=== PATIENT | female | born 1990 | race Caucasian/White ===

== ENCOUNTER 2016-12-09 23:36 | Emergency (ER) | payer MEDICAID ==
[2016-12-09 23:49] VITALS: BP 146/79
--- NOTE | 2016-12-10 00:37 | EDM.PDOC ---
ED HPI ENT - General Chief Complaint: ENT Problem Stated Complaint: TOOTHACHE Time Seen by Provider: 12/10/16 00:27 Source: Reports: Patient, RN notes reviewed History Limitations: Reports: No limitations - History of Present Illness INITIAL COMMENTS - FREE TEXT/NARRATIVE: 26-year-old female presents emergency department a complaint of dental pain, she states that the pain for last 24 hours unable to sleep secondary to her pain she has been using ibuprofen without much relief denies any fevers - Related Data Allergies/ADRs: Allergies Allergy/AdvReac Type Severity Reaction Status Date / Time morphine Allergy Itching Verified 12/09/16 23:50 Home Meds: Home Meds Citalopram Hydrobromide [Citalopram HBr] 40 mg PO DAILY 09/26/15 [History] Methylphenidate [Ritalin SR] 20 mg PO DAILY 12/09/16 [History] hydrOXYzine HCl [Take Home: hydrOXYzine HCl 25 MG, 4 Tab Pack] 1 tab PO DAILY PRN 12/09/16 [History] 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: 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 Psychiatric History: Reports: Anxiety, Depression - Infectious Disease History Infectious Disease History: Reports: Human papilloma virus (HPV) - Past Surgical History Female Surgical History: Reports: section, Tubal ligation Social & Family History - Tobacco Use Smoking Status *Q: Never Smoker Years of Tobacco use: 10 Packs/Tins Daily: 0.5 Second Hand Smoke Exposure: Yes - Caffeine Use Caffeine Use: Reports: None - Alcohol Use Days Per Week of Alcohol Use: 0 - Recreational Drug Use Recreational Drug Use: No ED ROS ENT - Review of Systems Review Of Systems: See Below Constitutional: Denies: fever, chills HEENT: Reports: Dental pain Respiratory: Reports: No Symptoms Cardiovascular: Reports: No symptoms ED EXAM, ENT - Physical Exam Exam: See Below Exam Limited By: No limitations General Appearance: alert, WD/WN, no apparent distress Mouth/Throat: Normal inspection, Normal gums, Dental pain, Dental tenderness, Other (Tooth #15). No: Dental abcess Course - Vital Signs Last Recorded V/S: Last Vital Signs Temp 97.8 F 12/09/16 23:46 Pulse 96 12/09/16 23:46 Resp 16 12/09/16 23:46 BP 146/79 H 12/09/16 23:46 Pulse Ox 98 12/09/16 23:46 Departure - Departure Time of Disposition: 00:37 Disposition: Home, Self-Care 01 Condition: good Clinical Impression: Pain, dental Forms: ED Department Discharge Additional Instructions: Use ibuprofen for baseline pain control, use Tylenol #3 for breakthrough pain, please followup with dentistry as soon as possible - Assessment/Plan Plan: Assessment Acuity = acute Site and laterality = dental pain #15 Etiology = dental caries Manifestations = [none Location of injury = home Lab values = none Plan Prescription written for ibuprofen 800 mg tablets as well as 15 tablets of Tylenol No. 3 recommend followup with dentistry as soon as possible Patient was in agreement with the plan all questions were answered, they were instructed to return to the emergency department or call for worsening symptoms. This note was dictated using [employer] voice recognition software please call with any questions.
== END 2016-12-10 00:42 | disposition home or self-care (01) ==
LOC: JP.ED 23:36
DX: K08.89 Other specified disorders of teeth and supporting structures (principal); F41.9 Anxiety disorder, unspecified; F32.9 Major depressive disorder, single episode, unspecified; Z98.51 Tubal ligation status; Z88.5 Allergy status to narcotic agent; Z79.899 Other long term (current) drug therapy
CPT/HCPCS: 99283

== ENCOUNTER 2017-02-17 15:46 | Emergency (ER) | payer MEDICAID ==
[2017-02-17] MEDS ORDERED: Ibuprofen 600 MG Tab PO ONE (15:55)
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
[2017-02-17 16:07] VITALS: BP 146/91
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
== END 2017-02-17 17:09 | disposition home or self-care (01) ==
LOC: JP.ED 15:46
DX: S13.4XXA Sprain of ligaments of cervical spine, initial encounter (principal); Z88.5 Allergy status to narcotic agent; Z79.899 Other long term (current) drug therapy; F31.9 Bipolar disorder, unspecified; F41.9 Anxiety disorder, unspecified; Z98.51 Tubal ligation status; V43.51XA Car driver injured in collision with sport utility vehicle in traffic accident, initial encounter
CPT/HCPCS: 72125; 73080; 81001; 99285; A9270; 99283

== ENCOUNTER 2017-02-24 21:12 | Emergency (ER) | payer MEDICAID ==
[2017-02-24 23:11] VITALS: BP 139/81
[2017-02-24] MEDS ORDERED: Ketorolac 60 MG/2 ML SDV IM ONE (23:20)
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
== END 2017-02-25 00:10 | disposition home or self-care (01) ==
LOC: JP.ED 21:12
DX: S39.012D Strain of muscle, fascia and tendon of lower back, subsequent encounter (principal); F17.210 Nicotine dependence, cigarettes, uncomplicated; G43.909 Migraine, unspecified, not intractable, without status migrainosus; F41.9 Anxiety disorder, unspecified; F32.9 Major depressive disorder, single episode, unspecified; Z88.5 Allergy status to narcotic agent; Z79.899 Other long term (current) drug therapy; Z90.49 Acquired absence of other specified parts of digestive tract; Z98.51 Tubal ligation status; V89.2XXD Person injured in unspecified motor-vehicle accident, traffic, subsequent encounter
CPT/HCPCS: 96372; 99283; J1885

== ENCOUNTER 2017-03-30 02:38 | Emergency (ER) | payer MEDICAID ==
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
== END 2017-03-30 04:02 | disposition home or self-care (01) ==
LOC: JP.ED 02:38
DX: K02.9 Dental caries, unspecified (principal); F17.210 Nicotine dependence, cigarettes, uncomplicated; Z88.5 Allergy status to narcotic agent; Z79.899 Other long term (current) drug therapy
CPT/HCPCS: 99283

== ENCOUNTER 2017-06-26 18:48 | Emergency (ER) | payer MEDICAID ==
[2017-06-26 19:35] VITALS: BP 109/59
--- NOTE | 2017-06-26 20:01 | EDM.PDOC ---
ED HPI GENERAL MEDICAL PROBLEM - General Chief Complaint: ENT Problem Stated Complaint: L EAR & TOOTH PAIN Time Seen by Provider: 06/26/17 19:56 Source of Information: Reports: Patient, Old Records History Limitations: Reports: No Limitations - History of Present Illness INITIAL COMMENTS - FREE TEXT/NARRATIVE: 27 yo female with an oral infection and L ear pain. The oral infection has been present for a couple weeks, the ear is a more recent problem. No fever. Has no dentist. Onset: Gradual Duration: Day(s): Location: Reports: Head (L ear), Face Quality: Reports: Ache Severity: Mild Improves with: Reports: None Worsens with: Reports: Other (time) Context: Reports: Other (Hx of prior dental infections.) Associated Symptoms: Reports: No Other Symptoms. 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 Pain Score (Numeric/FACES): 8 - Related Data Allergies Allergy/AdvReac Type Severity Reaction Status Date / Time morphine Allergy Itching Verified 06/26/17 19:30 Home Meds: Home Meds Escitalopram [Lexapro] 10 mg PO DAILY 03/30/17 [History] Methylphenidate [Ritalin] 20 mg PO BID 03/30/17 [History] Meloxicam [Mobic] 7.5 mg PO DAILY 06/26/17 [History] Past Medical History HEENT History: Reports: None Cardiovascular History: Reports: None Respiratory History: Reports: None Gastrointestinal History: Reports: None Genitourinary History: Reports: None 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 Neurological History: Reports: Migraines Psychiatric History: Reports: Anxiety, Depression Endocrine/Metabolic History: Reports: None Hematologic History: Reports: None Immunologic History: Reports: None Oncologic (Cancer) History: Reports: None Dermatologic History: Reports: None - Infectious Disease History Infectious Disease History: Reports: Chicken Pox - Past Surgical History Head Surgeries/Procedures: Reports: None HEENT Surgical History: Reports: None Cardiovascular Surgical History: Reports: None Respiratory Surgical History: Reports: None GI Surgical History: Reports: Appendectomy Female Surgical History: Reports: Section, Tubal Ligation Endocrine Surgical History: Reports: None Neurological Surgical History: Reports: None Musculoskeletal Surgical History: Reports: None Oncologic Surgical History: Reports: None Dermatological Surgical History: Reports: None Social & Family History - Tobacco Use Smoking Status *Q: Current Every Day Smoker Years of Tobacco use: 15 Packs/Tins Daily: 0.7 Used Tobacco, but Quit: No Second Hand Smoke Exposure: Yes - Caffeine Use Caffeine Use: Reports: Coffee, Energy Drinks - Alcohol Use Days Per Week of Alcohol Use: 0 - Recreational Drug Use Recreational Drug Use: No ED ROS ENT - Review of Systems Review Of Systems: See Below Constitutional: Reports: No Symptoms HEENT: Reports: Dental Pain (Upper left), Ear Pain (Left) Respiratory: Reports: No Symptoms Skin: Reports: No Symptoms Neurological: Reports: No Symptoms ED EXAM, ENT - Physical Exam Exam: See Below Exam Limited By: No Limitations General Appearance: Alert, WD/WN, No Apparent Distress Ears: Normal External Exam, Normal Canal, Hearing Grossly Normal, Other ( minimal erythema of the L TM) Nose: Normal Inspection, Normal Mucousa, No Blood Mouth/Throat: Normal Gums, Normal Lips, Normal Oropharynx, Other (small pustule above the L upper canine. Tooth tender with percussion. ) Head: Atraumatic, Normocephalic Neck: Normal Inspection, Supple Respiratory/Chest: No Respiratory Distress, Lungs Clear, Normal Breath Sounds, No Accessory Muscle Use Course - Vital Signs Last Recorded V/S: Last Vital Signs Temp 37 C 06/26/17 19:34 Pulse 63 06/26/17 19:34 Resp 15 06/26/17 19:34 BP 109/59 L 06/26/17 19:34 Pulse Ox 96 06/26/17 19:34 Departure - Departure Time of Disposition: 20:01 Disposition: Home, Self-Care 01 Condition: Good Clinical Impression: Dental abscess Otitis media Qualifiers: Otitis media type: other nonsuppurative Chronicity: acute Laterality: left Recurrence: not specified as recurrent Qualified Code(s): H65.192 - Other acute nonsuppurative otitis media, left ear - Discharge Information Referrals: PCP,None [Primary Care Provider] - Forms: ED Department Discharge
== END 2017-06-26 20:01 | disposition home or self-care (01) ==
LOC: JP.ED 18:48
DX: H65.192 Other acute nonsuppurative otitis media, left ear (principal); K04.7 Periapical abscess without sinus; Z88.5 Allergy status to narcotic agent; F17.210 Nicotine dependence, cigarettes, uncomplicated
CPT/HCPCS: 99283

== ENCOUNTER 2017-08-02 15:36 | Emergency (ER) | payer MEDICAID ==
[2017-08-02 15:51] VITALS: BP 129/56
[2017-08-02] MEDS ORDERED: Ketorolac 60 MG/2 ML SDV IM ONE (16:26)
--- NOTE | 2017-08-02 16:35 | EDM.PDOC ---
ED HPI GENERAL MEDICAL PROBLEM - General Chief Complaint: Back Pain or Injury Stated Complaint: BACK PAIN Time Seen by Provider: 08/02/17 16:21 Source of Information: Reports: Patient, RN Notes Reviewed History Limitations: Reports: No Limitations - History of Present Illness INITIAL COMMENTS - FREE TEXT/NARRATIVE: 27-year-old female presents emergency department day complaint of back pain, she has a history of chronic back pain is asking for some pain control she states Toradol usually works well for her she denies any loss of bowel or bladder - Related Data Allergies Allergy/AdvReac Type Severity Reaction Status Date / Time morphine Allergy Itching Verified 06/26/17 19:30 Home Meds: Home Meds Escitalopram [Lexapro] 10 mg PO DAILY 03/30/17 [History] Citalopram [Citalopram HBr] 08/02/17 [History] Past Medical History 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 Neurological History: Reports: Migraines Psychiatric History: Reports: Anxiety, Depression - Infectious Disease History Infectious Disease History: Reports: Chicken Pox - Past Surgical History Head Surgeries/Procedures: Reports: None HEENT Surgical History: Reports: None Cardiovascular Surgical History: Reports: None Respiratory Surgical History: Reports: None GI Surgical History: Reports: Appendectomy Female Surgical History: Reports: Section, Tubal Ligation Endocrine Surgical History: Reports: None Neurological Surgical History: Reports: None Musculoskeletal Surgical History: Reports: None Oncologic Surgical History: Reports: None Dermatological Surgical History: Reports: None Social & Family History - Tobacco Use Smoking Status *Q: Current Every Day Smoker Years of Tobacco use: 4 Packs/Tins Daily: 0.1 Used Tobacco, but Quit: No Second Hand Smoke Exposure: Yes - Caffeine Use Caffeine Use: Reports: Coffee, Energy Drinks - Alcohol Use Days Per Week of Alcohol Use: 0 - Recreational Drug Use Recreational Drug Use: No ED ROS GENERAL - Review of Systems Review Of Systems: See Below Constitutional: Reports: No Symptoms Musculoskeletal: Reports: Back Pain ED EXAM, GENERAL - Physical Exam Exam: See Below Exam Limited By: No Limitations General Appearance: Alert, WD/WN, No Apparent Distress Respiratory/Chest: No Respiratory Distress Back Exam: Normal Inspection, Full Range of Motion, Paraspinal Tenderness. No: CVA Tenderness (R), CVA Tenderness (L), Muscle Spasm, Vertebral Tenderness Course - Vital Signs Last Recorded V/S: Last Vital Signs Temp 98.1 F 08/02/17 16:14 Pulse 98 08/02/17 16:14 Resp 16 08/02/17 16:14 BP 129/56 L 08/02/17 16:14 Pulse Ox 96 08/02/17 16:14 - Orders/Labs/Meds Meds: Medications Discontinued Medications Generic Name Dose Route Start Last Admin Trade Name Halley PRN Reason Stop Dose Admin Ketorolac Tromethamine 60 mg 08/02/17 16:26 Toradol IM 08/02/17 16:27 ONETIME ONE Departure - Departure Time of Disposition: 16:34 Disposition: Home, Self-Care 01 Condition: Good Clinical Impression: Back pain Qualifiers: Back pain location: low back pain Chronicity: chronic Back pain laterality: left Sciatica presence: without sciatica Qualified Code(s): M54.5 - Low back pain; G89.29 - Other chronic pain; G89.29 - Other chronic pain - Discharge Information Referrals: PCP,None [Primary Care Provider] - Additional Instructions: Use ibuprofen as needed for pain control, Please followup with your primary care provider in 3-5 days if not better, please call return to the emergency department with worsening of symptoms. - Assessment/Plan Plan: Assessment Acuity = chronic Site and laterality = back pain Etiology = unclear etiology Manifestations = none Location of injury = Home Lab values = none Plan Good relief with Toradol injection, recommend follow-up primary care in 3-5 days for reevaluation Patient was in agreement with the plan all questions were answered, they were instructed to return to the emergency department or call for worsening symptoms. This note was dictated using [email or web address] voice recognition software please call with any questions.
== END 2017-08-02 16:48 | disposition home or self-care (01) ==
LOC: JP.ED 15:36
DX: G89.29 Other chronic pain (principal); M54.5 Low back pain; F32.9 Major depressive disorder, single episode, unspecified; Z88.5 Allergy status to narcotic agent
CPT/HCPCS: 96372; 99283; J1885

== ENCOUNTER 2018-03-19 18:44 | Emergency (ER) | payer MEDICAID ==
[2018-03-19 18:58] VITALS: BP 145/78
--- NOTE | 2018-03-19 19:18 | EDM.PDOC ---
<Donna Ayoub N - Last Filed: 03/19/18 19:20> ED HPI GENERAL MEDICAL PROBLEM - General Chief Complaint: Back Pain or Injury Stated Complaint: BACK PAIN Time Seen by Provider: 03/19/18 19:10 - History of Present Illness INITIAL COMMENTS - FREE TEXT/NARRATIVE: Parris is an otherwise well 27-year-old female who presents to the ER with complaints of chronic low back pain which became unbearable today. Rates the pain at a 10/10 presently, and is exacerbated by sitting and moving. Denies any history of trauma or aggravating movements which would have precipitated this episode. Reports that her last MRI was last July, which showed a herniated disc at L5/SI joint. She reports radiculopathy, with numbness and tingling radiating to the top of her left foot. She states that an injection of Toradol typically alleviates her symptoms, and is requesting this today. She takes naproxen at home, and participates in weekly PT sessions, stretching exercises, and occasional chiropractor appointments for ongoing management. Denies any loss of control of bowel or bladder or any changes from baseline besides worsening pain. 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 Neurological History: Reports: Migraines Psychiatric History: Reports: Anxiety, Depression Endocrine/Metabolic History: Reports: None Hematologic History: Reports: None Immunologic History: Reports: None Oncologic (Cancer) History: Reports: None Dermatologic History: Reports: None - Infectious Disease History Infectious Disease History: Reports: Chicken Pox - Past Surgical History Head Surgeries/Procedures: Reports: None HEENT Surgical History: Reports: None Cardiovascular Surgical History: Reports: None Respiratory Surgical History: Reports: None GI Surgical History: Reports: Appendectomy Female Surgical History: Reports: Section, Tubal Ligation Endocrine Surgical History: Reports: None Neurological Surgical History: Reports: None Musculoskeletal Surgical History: Reports: None Oncologic Surgical History: Reports: None Dermatological Surgical History: Reports: None Social & Family History - Tobacco Use Smoking Status *Q: Never Smoker - Caffeine Use Caffeine Use: Reports: Coffee, Soda, Tea - Recreational Drug Use Recreational Drug Use: No ED ROS GENERAL - Review of Systems Constitutional: Reports: No Symptoms. Denies: Fever, Chills HEENT: Reports: No Symptoms Respiratory: Reports: No Symptoms Cardiovascular: Reports: No Symptoms Endocrine: Reports: No Symptoms GI/Abdominal: Reports: No Symptoms : Reports: No Symptoms. Denies: Incontinence Musculoskeletal: Reports: Back Pain Skin: Reports: No Symptoms Neurological: Reports: Numbness, Paresthesia (Of right leg) Psychiatric: Reports: No Symptoms Hematologic/Lymphatic: Reports: No Symptoms Immunologic: Reports: No Symptoms ED EXAM,LOWER BACK PAIN/INJURY - Physical Exam Exam: See Below Exam Limited By: No Limitations General Appearance: Alert, No Apparent Distress Back Exam: Normal Inspection, Other (Pain with palpation of lumbar spine) Neurological: Alert, Normal Mood/Affect, CN II-XII Intact, Normal Gait, Oriented x 3. No: Saddle Anesthesia Psychiatric: Normal Affect, Normal Mood Skin Exam: Warm, Dry, Intact Course - Vital Signs Last Recorded V/S: Last Vital Signs Temp 96.9 F 03/19/18 18:57 Pulse 85 03/19/18 18:57 Resp 16 03/19/18 18:57 BP 145/78 H 03/19/18 18:57 Pulse Ox 95 03/19/18 18:57 - Orders/Labs/Meds Meds: Medications Discontinued Medications Generic Name Dose Route Start Last Admin Trade Name Halley PRN Reason Stop Dose Admin Ketorolac Tromethamine 60 mg 03/19/18 19:19 03/19/18 19:24 Toradol IM 03/19/18 19:20 60 mg ONETIME ONE Administration Departure - Departure Disposition: Home, Self-Care 01 Clinical Impression: Acute exacerbation of chronic low back pain - Discharge Information Instructions: Back Pain, Adult Referrals: PCP,None [Primary Care Provider] - Forms: ED Department Discharge Care Plan Goals: Resident/PA IDX Provider #_ * IEctor MD was personally available for consultation in the ED. I have reviewed the chart and agree with the documentation as recorded by the Resident, including the assessment, treatment plan and disposition. * I, Ector Robertson MD personally saw and examined the patient. I have reviewed and agree with the Resident's findings. Continue any current medications and increase activity as tolerated. Continue with any exercises of the lower back when able. Consider rechecking in the next several days if not improving satisfactorily. <Ector Robertson - Last Filed: 03/19/18 21:45> ED ROS GENERAL - Review of Systems Review Of Systems: See Below Course - Re-Assessments/Exams Free Text/Narrative Re-Assessment/Exam: 03/19/18 19:32 Patient received 60 mg of IM Toradol and felt some improvement almost right away. She was comfortable being discharged. I encouraged her to continue with her exercises and strengthening of her lower back. She can recheck with her primary care if not improving satisfactorily. Departure - Departure Time of Disposition: 19:44
[2018-03-19] MEDS ORDERED: Ketorolac 60 MG/2 ML SDV IM ONE (19:19)
== END 2018-03-19 19:41 | disposition home or self-care (01) ==
LOC: JP.ED 18:44
DX: M54.5 Low back pain (principal); G89.29 Other chronic pain; F41.9 Anxiety disorder, unspecified; F32.9 Major depressive disorder, single episode, unspecified; Z88.5 Allergy status to narcotic agent
CPT/HCPCS: 96372; 99283; J1885

== ENCOUNTER 2018-05-25 08:17 | Emergency (ER) | payer MEDICAID ==
[2018-05-25 08:39] VITALS: BP 124/52
[2018-05-25] MEDS ORDERED: Ondansetron 4 MG Tab.DIS PO ONE (08:56)
[2018-05-25] MEDS ORDERED: Ketorolac 60 MG/2 ML SDV IM ONE (08:56)
--- NOTE | 2018-05-25 09:00 | EDM.PDOC ---
ED HPI GENERAL MEDICAL PROBLEM - General Chief Complaint: Gastrointestinal Problem Stated Complaint: VOMITING,DIARRHEA Time Seen by Provider: 05/25/18 08:45 Source of Information: Reports: Patient History Limitations: Reports: No Limitations - History of Present Illness INITIAL COMMENTS - FREE TEXT/NARRATIVE: 28-year-old female who started feeling sick to her stomach yesterday, developed some loose stools with nausea and vomiting. She is running a fever this morning , has a headache, her ears hurt so she thought she come in to be checked. She vomited once this morning. No exposure to illness she knows of, no recent travel , no recent antibiotic. She has some generalized aching, a headache, her knee hurts, some abdominal cramps but no specific area with localized pain. Onset: Gradual (Over the past 24 hours) Associated Symptoms: Reports: Fever/Chills, Headaches, Loss of Appetite, Malaise , Nausea/Vomiting. 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 Neurological History: Reports: Migraines Psychiatric History: Reports: Anxiety, Depression Endocrine/Metabolic History: Reports: None Hematologic History: Reports: None Immunologic History: Reports: None Oncologic (Cancer) History: Reports: None Dermatologic History: Reports: None - Infectious Disease History Infectious Disease History: Reports: Chicken Pox - Past Surgical History Head Surgeries/Procedures: Reports: None HEENT Surgical History: Reports: None Cardiovascular Surgical History: Reports: None Respiratory Surgical History: Reports: None GI Surgical History: Reports: Appendectomy Female Surgical History: Reports: Section, Tubal Ligation Endocrine Surgical History: Reports: None Neurological Surgical History: Reports: None Musculoskeletal Surgical History: Reports: None Oncologic Surgical History: Reports: None Dermatological Surgical History: Reports: None Social & Family History - Tobacco Use Smoking Status *Q: Never Smoker - Caffeine Use Caffeine Use: Reports: Coffee, Soda, Tea - Recreational Drug Use Recreational Drug Use: No ED ROS GENERAL - Review of Systems Review Of Systems: See Below Constitutional: Reports: Fever, Chills, Malaise, Decreased Appetite HEENT: Reports: Ear Pain. Denies: Throat Pain Respiratory: Denies: Shortness of Breath, Cough Cardiovascular: Denies: Chest Pain Endocrine: Reports: Fatigue GI/Abdominal: Reports: Abdominal Pain, Diarrhea, Decreased Appetite, Nausea, Vomiting : Reports: No Symptoms Musculoskeletal: Reports: Muscle Pain Skin: Reports: No Symptoms. Denies: Rash Neurological: Reports: Headache ED EXAM, GI/ABD - Physical Exam Exam: See Below Exam Limited By: No Limitations General Appearance: Alert, No Apparent Distress (Looks tired and uncomfortable but not distressed) Eyes: Bilateral: Normal Appearance (No jaundice) Head: Atraumatic Neck: No: Lymphadenopathy (R), Lymphadenopathy (L) Respiratory/Chest: No Respiratory Distress, Lungs Clear Cardiovascular: Regular Rate, Rhythm, Tachycardia (Mild tachycardia) GI/Abdominal Exam: Tender (She does react with discomfort with palpation but it is diffuse and mild, no rebound tenderness), Abnormal Bowel Sounds (Sounds are hypoactive) Extremities: Other (Some discomfort with passive movement of the right knee, no effusion) Neurological: Alert, Oriented Psychiatric: Flat Affect Skin Exam: Warm, Dry Course - Vital Signs Last Recorded V/S: Last Vital Signs Temp 102.4 F H 05/25/18 08:40 Pulse 111 H 05/25/18 08:40 Resp 16 05/25/18 08:40 BP 124/52 L 05/25/18 08:40 Pulse Ox 96 05/25/18 08:40 - Orders/Labs/Meds Labs: Laboratory Tests 05/25/18 05/25/18 Range/Units 09:39 09:39 WBC 10.6 (4.5-11.0) K/uL RBC 4.31 (3.30-5.50) M/uL Hgb 12.7 (12.0-15.0) g/dL Hct 37.4 (36.0-48.0) % MCV 87 (80-98) fL MCH 30 (27-31) pg MCHC 34 (32-36) % Plt Count 284 (150-400) K/uL Neut % (Auto) 88 H (36-66) % Lymph % (Auto) 6 L (24-44) % [place] % (Auto) 6 (2-6) % Eos % (Auto) 0 L (2-4) % Baso % (Auto) 0 (0-1) % Sodium 134 L (140-148) mmol/L Potassium 3.6 (3.6-5.2) mmol/L Chloride 99 L (100-108) mmol/L Carbon Dioxide 23 (21-32) mmol/L Anion Gap 15.6 H (5.0-14.0) mmol/L BUN 10 (7-18) mg/dL Creatinine 0.8 (0.6-1.0) mg/dL Est Cr Clr Drug Dosing 85.06 mL/min Estimated GFR (MDRD) > 60 (>60) Glucose 103 (74-106) mg/dL Calcium 8.7 (8.5-10.1) mg/dL Total Bilirubin 0.3 (0.2-1.0) mg/dL AST 19 D (15-37) U/L ALT 32 (12-78) U/L Alkaline Phosphatase 67 (46-116) U/L Total Protein 7.7 (6.4-8.2) g/dL Albumin 3.6 (3.4-5.0) g/dL Globulin 4.1 H (2.3-3.5) g/dL Albumin/Globulin Ratio 0.9 L (1.2-2.2) Meds: Medications Discontinued Medications Generic Name Dose Route Start Last Admin Trade Name Freq PRN Reason Stop Dose Admin Ketorolac Tromethamine 60 mg 05/25/18 08:56 05/25/18 09:02 Toradol IM 05/25/18 08:57 60 mg ONETIME ONE Administration Ondansetron HCl 4 mg 05/25/18 08:56 05/25/18 09:03 Zofran Odt PO 05/25/18 08:57 4 mg ONETIME ONE Administration - Re-Assessments/Exams Free Text/Narrative Re-Assessment/Exam: 05/25/18 08:59 This is very typical of a viral gastroenteritis, however symptoms can be treated. She is given 60 mg of IM Toradol and a sublingual Zofran. 05/25/18 10:07 Medications did provide some subjective improvement, white count was normal, extended chemistry profile was nonspecific. Wrote a note for the patient be off work for the next 1-2 days and encouraged her to concentrate on fluids and symptom control, and return if not improving in the next 24-48 hours. Departure - Departure Time of Disposition: 10:25 Disposition: Home, Self-Care 01 Condition: Fair Clinical Impression: Gastroenteritis - Discharge Information Instructions: Viral Gastroenteritis, Adult, [id number] Referrals: PCP,None [Primary Care Provider] - Forms: ED Department Discharge Care Plan Goals: Rest, fluids, a regular dose of ibuprofen or Tylenol will help with body aches and fever. Stay home from work for the next 1-2 days, and recheck in 24-48 hours if not improving satisfactorily.
== END 2018-05-25 10:25 | disposition home or self-care (01) ==
LOC: JP.ED 08:17
DX: K52.9 Noninfective gastroenteritis and colitis, unspecified (principal); Z79.899 Other long term (current) drug therapy; Z88.5 Allergy status to narcotic agent
CPT/HCPCS: 36415; 80053; 85025; 96372; 99284; A9270; J1885

== ENCOUNTER 2018-09-16 20:03 | Emergency (ER) | payer MEDICAID ==
[2018-09-16 20:37] VITALS: BP 135/82
--- NOTE | 2018-09-16 20:46 | EDM.PDOC ---
ED HPI GENERAL MEDICAL PROBLEM - General Chief Complaint: Upper Extremity Injury/Pain Stated Complaint: LIGHTHEADED,NECK AND ARM PAIN Time Seen by Provider: 09/16/18 20:30 Source of Information: Reports: Patient History Limitations: Reports: No Limitations - History of Present Illness INITIAL COMMENTS - FREE TEXT/NARRATIVE: 28-year-old female is felt lightheaded for the past 2 days, no fever or chills, no nausea or vomiting, her chronic neck and left arm discomfort is a little worse than usual. No shortness of breath or cough. No ear pain, abdominal pain, rashes or joint pains. Onset: Gradual (2 days) Associated Symptoms: Reports: Other (Mild neck and left arm discomfort with paresthesias). 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 Neurological History: Reports: Migraines Psychiatric History: Reports: Anxiety, Depression Endocrine/Metabolic History: Reports: None Hematologic History: Reports: None Immunologic History: Reports: None Oncologic (Cancer) History: Reports: None Dermatologic History: Reports: None - Infectious Disease History Infectious Disease History: Reports: Chicken Pox - Past Surgical History Head Surgeries/Procedures: Reports: None HEENT Surgical History: Reports: None Cardiovascular Surgical History: Reports: None Respiratory Surgical History: Reports: None GI Surgical History: Reports: Appendectomy Female Surgical History: Reports: Section, Tubal Ligation Endocrine Surgical History: Reports: None Neurological Surgical History: Reports: None Musculoskeletal Surgical History: Reports: None Oncologic Surgical History: Reports: None Dermatological Surgical History: Reports: None Social & Family History - Tobacco Use Smoking Status *Q: Unknown Ever Smoked - Caffeine Use Caffeine Use: Reports: Soda - Recreational Drug Use Recreational Drug Use: No Review of Systems - Review of Systems Review Of Systems: See Below Eyes: Reports: No Symptoms Ears: Reports: No Symptoms Mouth/Throat: Reports: No Symptoms Respiratory: Reports: No Symptoms Musculoskeletal: Reports: Neck Pain, Shoulder Pain (Left-sided) Skin: Reports: No Symptoms Neurological: Reports: Paresthesia (Paresthesias in the left arm) ED EXAM, GENERAL - Physical Exam Exam: See Below Exam Limited By: No Limitations General Appearance: Alert, No Apparent Distress Eye Exam: Bilateral Eye: Normal Inspection Ears: Normal TMs Head: Atraumatic Neck: Other (A small amount of paracervical muscle discomfort with palpation on the left side) Respiratory/Chest: No Respiratory Distress Cardiovascular: Regular Rate, Rhythm Extremities: Other (Full active range of motion of the left arm without limitations or pain.) Neurological: Alert, Oriented, Other (Romberg is negative, no pronator drift) Skin Exam: Warm, Dry Course - Vital Signs Last Recorded V/S: Last Vital Signs Temp 97.9 F 09/16/18 20:23 Pulse 78 09/16/18 20:23 Resp 12 09/16/18 20:23 BP 135/82 09/16/18 20:23 Pulse Ox 98 09/16/18 20:23 - Re-Assessments/Exams Free Text/Narrative Re-Assessment/Exam: 09/16/18 20:45 Patient will be put on naproxen through the weekend 500 mg twice daily and increase activity as tolerated. Recheck next week with her primary provider and initiate physical therapy if not improving satisfactorily. Departure - Departure Time of Disposition: 20:52 Disposition: Home, Self-Care 01 Condition: Good Clinical Impression: Dizziness, Paresthesia of left upper limb - Discharge Information Instructions: Dizziness, [id number] Referrals: PCP,None [Primary Care Provider] - Forms: ED Department Discharge Care Plan Goals: Continue activity as tolerated and take naproxen twice daily through the weekend as prescribed. Recheck early next week if not improving satisfactorily.
== END 2018-09-16 20:53 | disposition home or self-care (01) ==
LOC: JP.ED 20:03
DX: R42 Dizziness and giddiness (principal); R20.2 Paresthesia of skin; Z88.5 Allergy status to narcotic agent
CPT/HCPCS: 99284

== ENCOUNTER 2018-10-08 18:15 | Emergency (ER) | payer MEDICAID ==
[2018-10-08 18:35] VITALS: BP 117/61
[2018-10-08] MEDS ORDERED: Ketorolac 60 MG/2 ML SDV IM ONE (18:58)
[2018-10-08] MEDS ORDERED: Cyclobenzaprine 10 MG Tab PO ONE (18:59)
--- NOTE | 2018-10-08 19:00 | EDM.PDOC ---
ED HPI GENERAL MEDICAL PROBLEM - General Chief Complaint: Back Pain or Injury Stated Complaint: LOWER BACK PAIN Time Seen by Provider: 10/08/18 19:00 Source of Information: Reports: Patient History Limitations: Reports: No Limitations - History of Present Illness INITIAL COMMENTS - FREE TEXT/NARRATIVE: pt arrived with pain going over the buttock of the rt buttock area. She has some tingling in her left leg. She has not had a fall or injury. She has a history of neck pain. . 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 The low back symptoms are new and without injury. Onset: Other (last 2 days. 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 TEACHER History: Reports: Polycystic Ovaries Musculoskeletal History: Reports: Back Pain, Chronic Neurological History: Reports: Migraines Psychiatric History: Reports: Anxiety, Depression Endocrine/Metabolic History: Reports: None Hematologic History: Reports: None Immunologic History: Reports: None Oncologic (Cancer) History: Reports: None Dermatologic History: Reports: None - Infectious Disease History Infectious Disease History: Reports: Chicken Pox - Past Surgical History Head Surgeries/Procedures: Reports: None HEENT Surgical History: Reports: None Cardiovascular Surgical History: Reports: None Respiratory Surgical History: Reports: None GI Surgical History: Reports: Appendectomy Female Surgical History: Reports: Section, Tubal Ligation Endocrine Surgical History: Reports: None Neurological Surgical History: Reports: None Musculoskeletal Surgical History: Reports: None Oncologic Surgical History: Reports: None Dermatological Surgical History: Reports: None Social & Family History - Tobacco Use Smoking Status *Q: Current Every Day Smoker Years of Tobacco use: 10 Packs/Tins Daily: 0.5 - Caffeine Use Caffeine Use: Reports: Coffee, Soda, Tea - Recreational Drug Use Recreational Drug Use: No ED ROS GENERAL - Review of Systems Review Of Systems: See Below Constitutional: Reports: No Symptoms HEENT: Reports: No Symptoms Respiratory: Reports: No Symptoms Cardiovascular: Reports: No Symptoms Endocrine: Reports: No Symptoms GI/Abdominal: Reports: No Symptoms : Reports: No Symptoms Musculoskeletal: Reports: Back Pain, Muscle Pain, Other ( pt has tingling in her left leg. She has pain over the rt buttock. ) ED EXAM,LOWER BACK PAIN/INJURY - Physical Exam Exam: See Below Text/Narrative:: pt arrived with back pain which was not provoked by injury. Exam Limited By: No Limitations General Appearance: Alert, Mild Distress Ears: Normal TMs Nose: Normal Inspection Throat/Mouth: Normal Inspection Head: Sinus Tenderness Neck: Normal Inspection Respiratory/Chest: No Respiratory Distress Cardiovascular: Regular Rate, Rhythm GI/Abdominal: Soft, Non-Tender (Female) Exam: Deferred Rectal (Female) Exam: Deferred Back Exam: Other ( pt is having pain over the rt buttock which a questionably positive straight leg raising sign. She has a neg straight leg raising on the left. ) Extremities: Normal Inspection Neurological: Alert, Oriented x 3, Other (pt is having difficulty giving a good hiastory. ) Psychiatric: Normal Affect Course - Vital Signs Last Recorded V/S: Last Vital Signs Temp 36.2 C 10/08/18 18:37 Pulse 73 10/08/18 18:37 Resp 18 10/08/18 18:37 BP 117/61 10/08/18 18:37 Pulse Ox 95 10/08/18 18:37 - Orders/Labs/Meds Meds: Medications Discontinued Medications Generic Name Dose Route Start Last Admin Trade Name Halley PRN Reason Stop Dose Admin Hydrocodone Bitart/Acetaminophen 1 tab 10/08/18 19:41 [place] 325-5 Mg PO 10/08/18 19:42 ONETIME ONE Cyclobenzaprine HCl 10 mg 10/08/18 18:59 10/08/18 19:09 Flexeril PO 10/08/18 19:00 10 mg ONETIME ONE Administration Ketorolac Tromethamine 60 mg 10/08/18 18:58 10/08/18 19:09 Toradol IM 10/08/18 18:59 60 mg ONETIME ONE Administration - Re-Assessments/Exams Free Text/Narrative Re-Assessment/Exam: 10/08/18 19:44 pt was given flexeril and torodol and she did get relief. She is using advil for pain at home. Departure - Departure Time of Disposition: 19:45 Disposition: Home, Self-Care 01 Condition: Fair Clinical Impression: Low back pain - Discharge Information Referrals: Neetu Preciado MD [Primary Care Provider] - Forms: ED Department Discharge Care Plan Goals: moist warm heat to the low back, rest, torodol 10mg q6h for the next 5 days then resume the naprosyn 500mg bid, flexeril 10mg 1/2 tab qam and 1 tab hs. follow up appt with Dr Jonas. If ongouing pain pain may need a Mri of the lumbar area.
[2018-10-08] MEDS ORDERED: Acetaminophen/HYDROcodone 325-5 MG Tab PO ONE (19:41)
== END 2018-10-08 19:59 | disposition home or self-care (01) ==
LOC: JP.ED 18:15
DX: M54.5 Low back pain (principal); F17.210 Nicotine dependence, cigarettes, uncomplicated; Z88.8 Allergy status to other drugs, medicaments and biological substances
CPT/HCPCS: 96372; 99283; A9270; J1885

== ENCOUNTER 2019-09-20 22:08 | Emergency (ER) | payer MEDICAID ==
[2019-09-20 22:56] VITALS: BP 112/73; PULSE 85
--- NOTE | 2019-09-20 22:56 | EDM.PDOC ---
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: Polycystic Ovaries Musculoskeletal History: Reports: Back Pain, Chronic Neurological History: Reports: Migraines Psychiatric History: Reports: Anxiety, Depression - Infectious Disease History Infectious Disease History: Reports: Chicken Pox - Past Surgical History Head Surgeries/Procedures: Reports: None HEENT Surgical History: Reports: None Cardiovascular Surgical History: Reports: None Respiratory Surgical History: Reports: None GI Surgical History: Reports: Appendectomy Female Surgical History: Reports: Section, Tubal Ligation Endocrine Surgical History: Reports: None Neurological Surgical History: Reports: None Musculoskeletal Surgical History: Reports: None Oncologic Surgical History: Reports: None Dermatological Surgical History: Reports: None Social & Family History - Caffeine Use Caffeine Use: Reports: Coffee, Soda, Tea Review of Systems - Review of Systems Review Of Systems: See Below Musculoskeletal: Reports: Hand Pain Skin: Reports: No Symptoms Neurological: Reports: No Symptoms ED EXAM, GENERAL - Physical Exam Exam: See Below Free Text/Narrative:: Examination of the left hand I do not appreciate any erythema there is no edema there is some point tenderness over the thenar eminence of the thumb on the left hand full range of motion of all digits radial pulses +2 sensation is intact Exam Limited By: No Limitations General Appearance: Alert, WD/WN, No Apparent Distress Departure - Departure Time of Disposition: 22:55 Disposition: Home, Self-Care 01 Condition: Fair Clinical Impression: Repetitive motion injury - Discharge Information Referrals: PCP,None [Primary Care Provider] - Additional Instructions: Recommend alternative ways to perform your job, could use Tylenol and Motrin as needed for pain control consultation with physical therapy may be helpful, a brace may be helpful, please followup with your primary care provider in 3-5 days if not better, please call return to the emergency department with worsening of symptoms. - Assessment/Plan Plan: Assessment Acuity = acute Site and laterality = repetitive motion injury left hand Etiology = secondary to work-related injury Manifestations = pain Location of injury = Home Lab values = none Plan Counseled on repetitive motion injury and alternative ways to perform her job recommend she follow-up with primary care for possible consultation with physical therapy This note was dictated using [employer] voice recognition software please call with any questions on syntax or grammar.
== END 2019-09-20 23:07 | disposition home or self-care (01) ==
LOC: JP.ED 22:08
DX: S69.92XA Unspecified injury of left wrist, hand and finger(s), initial encounter (principal); Z88.5 Allergy status to narcotic agent; X58.XXXA Exposure to other specified factors, initial encounter
CPT/HCPCS: 99283

== ENCOUNTER 2020-03-29 20:41 | Emergency (ER) | payer MEDICAID ==
[2020-03-29 21:24] VITALS: BP 137/77; PULSE 75
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
== END 2020-03-29 22:11 | disposition home or self-care (01) ==
LOC: JP.ED 20:41
DX: R42 Dizziness and giddiness (principal); F17.210 Nicotine dependence, cigarettes, uncomplicated; Z88.5 Allergy status to narcotic agent
CPT/HCPCS: 99282; 99283

== ENCOUNTER 2021-03-09 19:58 | Emergency (ER) | payer MEDICAID ==
[2021-03-09 20:56] VITALS: BP 125/76; PULSE 94
--- NOTE | 2021-03-09 21:09 | EDM.PDOC ---
ED HPI GENERAL MEDICAL PROBLEM - General Chief Complaint: ENT Problem Stated Complaint: EAR ACHE Time Seen by Provider: 03/09/21 21:09 Source of Information: Reports: Patient, RN Notes Reviewed History Limitations: Reports: No Limitations - History of Present Illness INITIAL COMMENTS - FREE TEXT/NARRATIVE: Parris presents today with complaints of left ear pain radiating to her left neck. She states she has had the pain for about 2 days and lots of itching inside her ear before that. She tried OTC medications, benadryl and a supplement but they did not help. She reports she is not sure if she likes her ritalin or not and thinks she may stop taking it. She denies injury, trauma, fever, chills, nausea, vomiting, change in bowel/bladder, worsening of her chronic headaches or other concerns. - Related Data Allergies Allergy/AdvReac Type Severity Reaction Status Date / Time morphine Allergy Itching Verified 03/09/21 21:01 Home Meds: Home Meds Methylphenidate [Ritalin] 10 mg PO DAILY 03/09/21 [History] Topiramate 50 mg PO DAILY 03/09/21 [History] Past Medical History - Past Health History Medical/Surgical History: Denies Medical/Surgical History HEENT History: Reports: None, Otitis Media Cardiovascular History: Reports: None Respiratory History: Reports: None Genitourinary History: Reports: None RN ORTHOPAEDIC History: Reports: Polycystic Ovaries, Musculoskeletal History: Reports: Back Pain, Chronic, Neck Pain, Chronic Neurological History: Reports: Migraines Psychiatric History: Reports: ADHD, Anxiety, Depression, PTSD Endocrine/Metabolic History: Reports: None Hematologic History: Reports: None Immunologic History: Reports: None Oncologic (Cancer) History: Reports: None Dermatologic History: Reports: None - Infectious Disease History Infectious Disease History: Reports: Chicken Pox - Past Surgical History Head Surgeries/Procedures: Reports: None HEENT Surgical History: Reports: None Cardiovascular Surgical History: Reports: None Respiratory Surgical History: Reports: None GI Surgical History: Reports: Appendectomy Female Surgical History: Reports: Section, Tubal Ligation Endocrine Surgical History: Reports: None Neurological Surgical History: Reports: None Musculoskeletal Surgical History: Reports: None Oncologic Surgical History: Reports: None Dermatological Surgical History: Reports: None Social & Family History - Tobacco Use Tobacco Use Status *Q: Current Every Day Tobacco User Years of Tobacco use: 18 Packs/Tins Daily: 0.5 - Caffeine Use Caffeine Use: Reports: Energy Drinks Caffeine Use Comment: red bull - Recreational Drug Use Recreational Drug Use: Yes Drug Use in Last 12 Months: No Recreational Drug Type: Reports: Marijuana/Hashish ED ROS ENT - Review of Systems Review Of Systems: See Below Constitutional: Denies: Fever, Chills, Malaise, Weakness, Fatigue, Night Sweats HEENT: Reports: Ear Pain (left ear pain), Rhinitis, Throat Pain. Denies: Ear Discharge, Eye Discharge, Eye Pain, Hearing Loss, Nosebleed, Sinus Problem, Thro at Swelling, Vertigo, Vision Change Respiratory: Reports: No Symptoms Cardiovascular: Reports: No Symptoms Endocrine: Reports: No Symptoms GI/Abdominal: Reports: No Symptoms : Reports: No Symptoms Musculoskeletal: Reports: No Symptoms Skin: Reports: No Symptoms Neurological: Reports: No Symptoms Psychiatric: Reports: No Symptoms Hematologic/Lymphatic: Reports: No Symptoms Immunologic: Reports: No Symptoms ED EXAM, ENT - Physical Exam Exam: See Below Exam Limited By: No Limitations General Appearance: Alert, WD/WN, No Apparent Distress Eye Exam: Bilateral Eye: Normal Inspection, PERRL Ears: Auricular Tenderness (left), TM Bulging (left), TM Dullness (left), TM Erythema (left), Other (Right TM dull, retracted). No: Mastoid Tenderness Nose: Normal Inspection, Normal Mucousa, No Blood. No: Nasal Deformity, Nasal Discharge, Nasal Swelling, Nasal Tenderness Mouth/Throat: Normal Inspection, Normal Gums, Normal Lips, Normal Oropharynx, Normal Teeth, Throat Pain. No: Hoarse Voice, Pharyngeal Erythema, Throat Swelling, Tongue Swelling, Tonsillar Erythema, Tonsillar Exudates, Tonsillar Swelling, Trismus, Uvular Deviation, Uvular Edema Head: Atraumatic, Normocephalic Neck: Normal Inspection, Supple, Non-Tender, Full Range of Motion. No: Lymphade nopathy (R), Lymphadenopathy (L), Thyromegaly Respiratory/Chest: No Respiratory Distress, Lungs Clear, Normal Breath Sounds, No Accessory Muscle Use, Chest Non-Tender. No: Crackles, Rales, Rhonchi, Wheezing Cardiovascular: Normal Peripheral Pulses, Regular Rate, Rhythm, No Edema, No Gallop, No Murmur, No Rub Back: Normal Inspection, Full Range of Motion. No: CVA Tenderness (R), CVA Tenderness (L) Extremities: Normal Inspection, Normal Range of Motion, Non-Tender, No Pedal Edema, Normal Capillary Refill Neurological: Alert, Oriented, Normal Cognition, Normal Gait, No Motor/Sensory Deficits Psychiatric: Normal Affect, Normal Mood Skin: Warm, Dry, Intact, Normal Color, No Rash Lymphatic: No Adenopathy Course - Vital Signs Last Recorded V/S: Last Vital Signs Temp 36.4 C 03/09/21 21:07 Pulse 94 03/09/21 21:07 Resp 16 03/09/21 21:07 BP 125/76 03/09/21 21:07 Pulse Ox 97 03/09/21 21:07 Departure - Departure Time of Disposition: 21:26 Disposition: Home, Self-Care 01 Condition: Good Clinical Impression: Otitis media - Discharge Information *PRESCRIPTION DRUG MONITORING PROGRAM REVIEWED*: No *COPY OF PRESCRIPTION DRUG MONITORING REPORT IN PATIENT KIERRA: No Instructions: Otitis Media, Adult, [id number] Referrals: PCP,None [Primary Care Provider] - Forms: ED Department Discharge Additional Instructions: You have been evaluated and treated for otitis media left ear (ear infection). Take augmentin 1 tablet twice a day (12 hours apart) for 10 days for infection. Take zyrtec (cetirizine) 10mg pill, one pill every morning for seasonal allergies. Take benadryl 25mg pill, take two pills at bedtime to help with allergies. Drink plenty of water to stay hydrated. Continue your current medications and follow up with your provider as needed. Return for any worsening, issues or concerns. Sepsis Event Note (ED) - Evaluation Sepsis Screening Result: No Definite Risk - Focused Exam Vital Signs: Vital Signs Temp Pulse Resp BP Pulse Ox 03/09/21 21:07 36.4 C 94 16 125/76 97 03/09/21 20:54 36.4 C 94 16 125/76 97 - Assessment/Plan Assessment:: Otitis media right Plan: Patient evaluated and treated for otitis media left ear (ear infection). Take augmentin 1 tablet twice a day (12 hours apart) for 10 days for infection. Take zyrtec (cetirizine) 10mg pill, one pill every morning for seasonal allergies. Take benadryl 25mg pill, take two pills at bedtime to help with allergies. Drink plenty of water to stay hydrated. Continue your current medications and follow up with your provider as needed. Return for any worsening, issues or concerns.
== END 2021-03-09 21:47 | disposition home or self-care (01) ==
LOC: JP.ED 19:58
DX: H66.92 Otitis media, unspecified, left ear (principal); Z88.5 Allergy status to narcotic agent; Z72.0 Tobacco use
CPT/HCPCS: 99282

== ENCOUNTER 2021-03-20 01:34 | Emergency (ER) | payer MEDICAID ==
--- NOTE | 2021-03-20 02:49 | EDM.PDOC ---
ED HPI GENERAL MEDICAL PROBLEM - General Chief Complaint: ENT Problem Stated Complaint: SORE THROAT Time Seen by Provider: 03/20/21 02:47 Source of Information: Reports: Patient, RN Notes Reviewed History Limitations: Reports: No Limitations - History of Present Illness INITIAL COMMENTS - FREE TEXT/NARRATIVE: 30-year-old female presents emergency department day complaint of sore throat, she states is been ill for about a week has had some fevers does produce greenish phlegm lots of sinus congestion no shortness of breath no nausea or vomiting no chest pain Throat Pain Score (Numeric/FACES): 10 - Related Data Allergies Allergy/AdvReac Type Severity Reaction Status Date / Time morphine Allergy Itching Verified 03/20/21 01:41 Home Meds: Home Meds Topiramate 50 mg PO DAILY 03/09/21 [History] DULoxetine [Cymbalta] 30 mg PO DAILY 03/20/21 [History] Past Medical History HEENT History: Reports: Otitis Media 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 History: Reports: Polycystic Ovaries, Musculoskeletal History: Reports: Back Pain, Chronic, Neck Pain, Chronic Neurological History: Reports: Migraines Psychiatric History: Reports: ADHD, Anxiety, Depression, PTSD Hematologic History: Reports: None Immunologic History: Reports: None Oncologic (Cancer) History: Reports: None Dermatologic History: Reports: None - Infectious Disease History Infectious Disease History: Reports: Chicken Pox - Past Surgical History Head Surgeries/Procedures: Reports: None HEENT Surgical History: Reports: None Cardiovascular Surgical History: Reports: None Respiratory Surgical History: Reports: None GI Surgical History: Reports: Appendectomy Female Surgical History: Reports: Section, Tubal Ligation Endocrine Surgical History: Reports: None Neurological Surgical History: Reports: None Musculoskeletal Surgical History: Reports: None Oncologic Surgical History: Reports: None Dermatological Surgical History: Reports: None Social & Family History - Tobacco Use Tobacco Use Status *Q: Current Every Day Tobacco User Years of Tobacco use: 18 Packs/Tins Daily: 1 - Caffeine Use Caffeine Use: Reports: Coffee Caffeine Use Comment: red bull - Recreational Drug Use Recreational Drug Use: No ED ROS ENT - Review of Systems Review Of Systems: See Below Constitutional: Reports: Fever, Chills HEENT: Reports: Sinus Problem Respiratory: Reports: Cough, Sputum Cardiovascular: Reports: No Symptoms GI/Abdominal: Reports: No Symptoms ED EXAM, ENT - Physical Exam Exam: See Below Exam Limited By: No Limitations General Appearance: Alert, WD/WN, No Apparent Distress Mouth/Throat: Normal Inspection, Normal Gums, Normal Lips, Normal Oropharynx, Normal Teeth Cardiovascular: Normal Peripheral Pulses, Regular Rate, Rhythm, No Edema, No Gallop, No JVD, No Murmur, No Rub GI/Abdominal: Soft, Non-Tender Course - Vital Signs Last Recorded V/S: Last Vital Signs Temp 97.1 F 03/20/21 01:42 Pulse 88 03/20/21 01:42 Resp 18 03/20/21 01:42 BP 129/77 03/20/21 01:42 Pulse Ox 98 03/20/21 01:42 - Orders/Labs/Meds Orders: Active Orders 24 hr Category Date Time Status CULTURE STREP A CONFIRMATION [RM] Stat Lab 03/20/21 01:50 Results STREP SCRN A RAPID W CULT CONF [RM] Stat Lab 03/20/21 01:50 Results Labs: Laboratory Tests 03/20/21 Range/Units 02:15 SARS CoV-2 RNA Rapid SHMUEL Negative Departure - Departure Time of Disposition: 02:49 Disposition: Home, Self-Care 01 Condition: Fair Clinical Impression: Pharyngitis Qualifiers: Pharyngitis/tonsillitis etiology: other specified organisms Qualified Code(s): J02.8 - Acute pharyngitis due to other specified organisms - Discharge Information Instructions: Pharyngitis Referrals: PCP,None [Primary Care Provider] - Additional Instructions: Take full course of antibiotics, please followup with your primary care provider in 3-5 days if not better, please call return to the emergency department with worsening of symptoms. Sepsis Event Note (ED) - Evaluation Sepsis Screening Result: No Definite Risk - Focused Exam Vital Signs: Vital Signs Temp Pulse Resp BP Pulse Ox 03/20/21 01:42 97.1 F 88 18 129/77 98 - My Orders Last 24 Hours: My Active Orders 03/20/21 01:50 CULTURE STREP A CONFIRMATION [RM] Stat STREP SCRN A RAPID W CULT CONF [RM] Stat - Assessment/Plan Last 24 Hours: My Active Orders 03/20/21 01:50 CULTURE STREP A CONFIRMATION [RM] Stat STREP SCRN A RAPID W CULT CONF [RM] Stat Plan: Assessment Acuity = acute Site and laterality = pharyngitis Etiology = unknown possibly bacterial Manifestations = none Location of injury = Home Lab values = rapid strep is negative Covid is negative Plan Because she has been ill for about a week elected to treat empirically with azithromycin follow-up primary care 3 to 5 days if not better This note was dictated using Tame voice recognition software please call with any questions on syntax or grammar.
[2021-03-20 03:05] VITALS: BP 129/77; PULSE 88
== END 2021-03-20 02:57 | disposition home or self-care (01) ==
LOC: JP.ED 01:34
DX: J02.8 Acute pharyngitis due to other specified organisms (principal); G43.909 Migraine, unspecified, not intractable, without status migrainosus; Z72.0 Tobacco use; Z88.5 Allergy status to narcotic agent; Z79.899 Other long term (current) drug therapy; Z20.822 Contact with and (suspected) exposure to COVID-19
CPT/HCPCS: 87081; 87880-QW; 99283; U0002

== ENCOUNTER 2021-05-20 16:41 | Emergency (ER) | payer MEDICAID ==
[2021-05-20 16:55] VITALS: BP 130/83; PULSE 97
--- NOTE | 2021-05-20 17:14 | EDM.PDOC ---
ED HPI GENERAL MEDICAL PROBLEM - General Chief Complaint: General Stated Complaint: SINUS PAIN Time Seen by Provider: 05/20/21 16:55 Source of Information: Reports: Patient, RN History Limitations: Reports: No Limitations - History of Present Illness INITIAL COMMENTS - FREE TEXT/NARRATIVE: Patient comes in with a 3-day history of sinus pain. She notices pain in her tooth, up into her sinuses, and significant ear pain on the left side. He is used [id number] medication with no benefit. She says she is sleeping much more than her usual. She does have seasonal allergies but feels this is completely different. She does have a slight cough but nothing productive. Nothing she has done seems to make it any better.. Onset: Sudden Onset Date: 05/17/21 Duration: Getting Worse Location: Reports: Head, Face Quality: Reports: Ache, Pressure Severity: Moderate Improves with: Reports: None Worsens with: Reports: Movement Context: Reports: Sick Contact Associated Symptoms: Reports: Cough, Headaches - Related Data Allergies Allergy/AdvReac Type Severity Reaction Status Date / Time morphine Allergy Itching Verified 05/20/21 16:56 Home Meds: Home Meds Topiramate 50 mg PO DAILY 03/09/21 [History] Past Medical History HEENT History: Reports: Otitis Media Cardiovascular History: Reports: None Respiratory History: Reports: None Gastrointestinal History: Reports: None Genitourinary History: Reports: None 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: Polycystic 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, Musculoskeletal History: Reports: Back Pain, Chronic, Neck Pain, Chronic Neurological History: Reports: Migraines Psychiatric History: Reports: ADHD, Anxiety, Depression, PTSD Endocrine/Metabolic History: Reports: Obesity/BMI 30+ Hematologic History: Reports: None Immunologic History: Reports: None Oncologic (Cancer) History: Reports: None Dermatologic History: Reports: None - Infectious Disease History Infectious Disease History: Reports: Chicken Pox - Past Surgical History Head Surgeries/Procedures: Reports: None HEENT Surgical History: Reports: None Cardiovascular Surgical History: Reports: None Respiratory Surgical History: Reports: None GI Surgical History: Reports: Appendectomy Female Surgical History: Reports: Section, Tubal Ligation Endocrine Surgical History: Reports: None Neurological Surgical History: Reports: None Musculoskeletal Surgical History: Reports: None Oncologic Surgical History: Reports: None Dermatological Surgical History: Reports: None Social & Family History - Tobacco Use Tobacco Use Status *Q: Current Every Day Tobacco User Years of Tobacco use: 15 Packs/Tins Daily: 0.5 Used Tobacco, but Quit: No Second Hand Smoke Exposure: No - Caffeine Use Caffeine Use: Reports: Coffee, Soda Caffeine Use Comment: red bull - Recreational Drug Use Recreational Drug Use: No ED ROS GENERAL - Review of Systems Review Of Systems: See Below Constitutional: Reports: No Symptoms HEENT: Reports: Dental Pain, Ear Pain, Rhinitis, Sinus Problem Respiratory: Reports: Cough (dry). Denies: Sputum Cardiovascular: Reports: No Symptoms Endocrine: Reports: Fatigue GI/Abdominal: Reports: No Symptoms Musculoskeletal: Reports: No Symptoms Skin: Reports: No Symptoms Neurological: Reports: No Symptoms Psychiatric: Reports: No Symptoms ED EXAM, GENERAL - Physical Exam Exam: See Below Exam Limited By: No Limitations General Appearance: Alert, WD/WN, Mild Distress Eye Exam: Bilateral Eye: PERRL Ears: Normal External Exam Ear Exam: Left Ear: Swelling, Tenderness, TM Red, TM Bulging Nose: Nasal Swelling, Nasal Drainage, Clear Rhinorrhea Throat/Mouth: Inflammation Head: Atraumatic Neck: Normal Inspection, Supple, Non-Tender, Full Range of Motion Respiratory/Chest: No Respiratory Distress, Lungs Clear, Normal Breath Sounds Cardiovascular: Normal Peripheral Pulses, Regular Rate, Rhythm, No Edema GI/Abdominal: Normal Bowel Sounds, Soft, Non-Tender, No Organomegaly Neurological: Alert, Oriented Psychiatric: Normal Affect, Normal Mood Skin Exam: Warm, Dry, Intact Course - Vital Signs Last Recorded V/S: Last Vital Signs Temp 35.8 C L 05/20/21 16:57 Pulse 97 05/20/21 16:57 Resp 16 05/20/21 16:57 BP 130/83 05/20/21 16:57 Pulse Ox 96 05/20/21 16:57 - Re-Assessments/Exams Free Text/Narrative Re-Assessment/Exam: 05/20/21 17:15 Likely sinusitis based on symptoms. Will try amoxicillin for 10 days. Patient in agreement with this plan. If symptoms do not improve or has worsening symptoms she should follow-up with the primary care provider or work return to the ER for further evaluation Departure - Departure Time of Disposition: 17:30 Disposition: Home, Self-Care 01 Condition: Fair Clinical Impression: Acute bacterial rhinosinusitis - Discharge Information Instructions: Sinusitis, Adult, [id number] Referrals: Maine Graham PA-C [Primary Care Provider] - Forms: ED Department Discharge Additional Instructions: Patient to take amoxicillin 3 times daily for 10 days. If symptoms fail to improve or worsen she should return to clinic or ER for further evaluation. Sepsis Event Note (ED) - Focused Exam Vital Signs: Vital Signs Temp Pulse Resp BP Pulse Ox 05/20/21 16:57 35.8 C L 97 16 130/83 96 05/20/21 16:54 35.8 C L 97 16 130/83 96 - Assessment/Plan Assessment:: Acute bacterial rhinosinusitis Plan: Amoxicillin 3 times daily for 10 days. Patient to follow-up with primary care and/or clinic if symptoms fail to improve or worsen for further evaluation
== END 2021-05-20 17:30 | disposition home or self-care (01) ==
LOC: JP.ED 16:41
DX: J01.90 Acute sinusitis, unspecified (principal); B96.89 Other specified bacterial agents as the cause of diseases classified elsewhere; E66.9 Obesity, unspecified; Z88.5 Allergy status to narcotic agent; Z72.0 Tobacco use; Z68.32 Body mass index [BMI] 32.0-32.9, adult
CPT/HCPCS: 99283

== ENCOUNTER 2021-07-14 03:21 | Emergency (ER) | payer MEDICAID ==
[2021-07-14 03:43] VITALS: BP 113/67; PULSE 96
[2021-07-14] MEDS ORDERED: Ketorolac 30 MG/ML SDV IM ONE (03:55)
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
--- NOTE | 2021-07-14 05:14 | CRLCR ---
For Patients: As a result of the Century Cures Act, medical imaging exams and procedure reports are released immediately into your electronic medical record. You may view this report before your referring provider. If you have questions, please contact your health care provider. INDICATION: ACUTE ON CHRONIC LOW BACK PAIN HISTORY: Acute on chronic low back pain. COMPARISON: None. TECHNIQUE: Lumbar spine, 3 views. FINDINGS: Five lumbar type vertebral bodies are demonstrated. Fallopian tube occlusion devices in the pelvis. There is no acute fracture or malalignment. Preservation of normal lumbar lordosis. Minimal degenerative disc disease in the lumbar spine. No lytic or blastic bone lesion. No soft tissue mass by plain film. No suspicious calcification. Tiny calcification adjacent to the left transverse process at L4, which could potentially represent a urolith. Suggest correlation with any history of flank pain. This measures 1-2 mm. IMPRESSION: No acute bone abnormality. Dictated by James Monte MD @ 07/14/2021 5:12:28 AM Dictated by: James Monte MD @ 07/14/2021 05:12:34 (Electronically Signed)
== END 2021-07-14 04:34 | disposition home or self-care (01) ==
LOC: JP.ED 03:21
DX: S39.012A Strain of muscle, fascia and tendon of lower back, initial encounter (principal); M54.41 Lumbago with sciatica, right side; E66.9 Obesity, unspecified; Z68.31 Body mass index [BMI] 31.0-31.9, adult; Z88.5 Allergy status to narcotic agent; Z72.0 Tobacco use; X58.XXXA Exposure to other specified factors, initial encounter
CPT/HCPCS: 72100; 96372; 99283; J1885

== ENCOUNTER 2021-09-21 18:49 | Emergency (ER) | payer MEDICAID ==
[2021-09-21 20:49] VITALS: BP 120/78; PULSE 83
== END 2021-09-21 22:15 | disposition left against medical advice (07) ==
LOC: JP.ED 18:49
DX: F41.9 Anxiety disorder, unspecified (principal); F43.0 Acute stress reaction; E66.9 Obesity, unspecified; Z68.31 Body mass index [BMI] 31.0-31.9, adult; Z88.5 Allergy status to narcotic agent; Z72.0 Tobacco use
CPT/HCPCS: 36415; 80053; 84443; 84484; 85025; 85379; 93005; 93010; 99283; 99285-25